=== PATIENT | female | born 1975 | race Caucasian/White ===

== ENCOUNTER 2017-02-01 19:50 | Emergency (ER) | payer OTHER ==
[2017-02-01] MEDS ORDERED: Ibuprofen TAB* 600 MG PO ONE (19:57)
[2017-02-01 19:58] VITALS: BP 140/85
--- NOTE | 2017-02-01 20:14 | UC ---
Throat Pain/Nasal Trey HPI - HPI Summary HPI Summary: 1) ST with mild runny nose and occ dry cough starting 4 days ago. Has been feeling feverish, has not taken temp. 2) 2 nights ago while shaving legs L foot slipped off side of tub and hit the ground, bruising L inner ankle 3) Last night was walking on steps in the dark and felt like she twisted her R ankle/foot. Having pain in R foot. - History of Current Complaint Chief Complaint: UCRespiratory Stated Complaint: THROAT PAIN Time Seen by Provider: 02/01/17 19:53 Hx Obtained From: Patient Hx Last Menstrual Period: 01/12/17 ?: No Onset/Duration: Gradual Onset, Lasting Days Severity: Mild Cough: Nonproductive Associated Signs & Symptoms: Positive: Nasal Discharge, Fever - subj. Negative : Wheezing, Vomiting, Rash - Allergies/Home Medications Allergies/Adverse Reactions: Allergies Allergy/AdvReac Type Severity Reaction Status Date / Time Aspirin Allergy Mild GI Upset Verified 08/25/13 20:27 Erythromycin Allergy Mild GI Upset Verified 08/25/13 20:27 Metronidazole [From Flagyl] Allergy Mild GI Upset Verified 08/25/13 20:27 Sulfamethoxazole Allergy Mild GI Upset Verified 08/25/13 20:27 w/Trimethoprim [From Bactrim] Latex Allergy Itching Verified 05/15/15 13:20 PMH/Surg Hx/FS Hx/Imm Hx Respiratory History: Asthma - Surgical History Surgical History: Yes Surgery Procedure, Year, and Place: CERVICAL TEAR REPAIR, TONSILLECTOMY, TUBAL LIGATION, APPENDECTOMY, SINUS SURGERY; left knee arthroscopy 07/2015 [facility] - Family History Known Family History: Negative: Cardiac Disease - Social History Lives: With Family Alcohol Use: Occasionally Substance Use Type: None Smoking Status (MU): Never Smoked Tobacco Household Exposure Type: Cigars Review of Systems Constitutional: Fever Skin: Negative Eyes: Negative ENT: Sore Throat Respiratory: Negative Cardiovascular: Negative Gastrointestinal: Negative Genitourinary: Negative Motor: Negative Neurovascular: Negative Musculoskeletal: Arthralgia Neurological: Negative Psychological: Negative All Other Systems Reviewed And Are Negative: Yes Physical Exam Triage Information Reviewed: Yes Appearance: Well-Appearing, Obese Vital Signs: Initial Vital Signs Temp 97.6 F 02/01/17 19:53 Pulse 106 02/01/17 19:53 Resp 20 02/01/17 19:53 BP 140/85 02/01/17 19:53 Pulse Ox 100 02/01/17 19:53 Vital Signs Reviewed: Yes Eye Exam: Normal, Other - PERRL Eyes: Positive: Conjunctiva Clear ENT: Positive: Hearing grossly normal, Pharynx normal, TMs normal. Negative: Nasal congestion, Tonsillar swelling - no tonsils, Tonsillar exudate Dental Exam: Normal Neck exam: Normal Neck: Positive: Supple, Nontender, No Lymphadenopathy Respiratory Exam: Normal Respiratory: Positive: Chest non-tender, Lungs clear, Normal breath sounds, No respiratory distress, No accessory muscle use Cardiovascular Exam: Normal Cardiovascular: Positive: RRR, No Murmur Musculoskeletal Exam: Other - Mild bruising and tenderness on L medial ankle Musculoskeletal: Positive: Strength Intact, ROM Intact, Other: - pt tenderness with bruising on R distal 5th MT Neurological Exam: Normal Psychological Exam: Normal Skin Exam: Other - bruising Throat Pain/Nasal Course/Dx - Differential Dx/Diagnosis Provider Diagnoses: pharyngitis. L ankle contusion. R foot sprain. elevated blood pressude due to discomfort Discharge - Discharge Plan Condition: Stable Disposition: HOME Patient Education Materials: Contusion in Adults (ED), Pharyngitis (ED), Foot Sprain (ED) Referrals: Nnamdi Sotelo MD [Primary Care Provider] -
--- NOTE | 2017-02-01 20:44 | RAD ---
INDICATION: Right foot injury. TECHNIQUE: 3 views of the right foot were obtained. FINDINGS: There is soft tissue swelling over the dorsal lateral aspect of the foot. The bones are normal alignment. No fracture is seen. Joint spaces appear maintained. IMPRESSION: SOFT TISSUE SWELLING, NO FRACTURE IS SEEN. IF THE PATIENT'S SYMPTOMS PERSIST RECOMMEND FOLLOW-UP IMAGING.
== END 2017-02-01 20:45 | disposition home or self-care (01) ==
LOC: UCEAST 19:50
DX: J02.9 Acute pharyngitis, unspecified (principal); S90.02XA Contusion of left ankle, initial encounter; S93.601A Unspecified sprain of right foot, initial encounter; X50.1XXA Overexertion from prolonged static or awkward postures, initial encounter; Y93.9 Activity, unspecified; Y92.9 Unspecified place or not applicable; R03.0 Elevated blood-pressure reading, without diagnosis of hypertension; R09.81 Nasal congestion; R50.9 Fever, unspecified; J45.909 Unspecified asthma, uncomplicated; E66.9 Obesity, unspecified; Z88.2 Allergy status to sulfonamides; Z88.6 Allergy status to analgesic agent; Z88.1 Allergy status to other antibiotic agents; Z91.040 Latex allergy status; Z77.22 Contact with and (suspected) exposure to environmental tobacco smoke (acute) (chronic)
CPT/HCPCS: 87651; 99212; A9270-GY; G0463

== ENCOUNTER 2017-04-06 19:26 | Emergency (ER) | payer OTHER ==
--- NOTE | 2017-04-06 19:36 | UC ---
Throat Pain/Nasal Trey HPI - HPI Summary HPI Summary: 41 year old female presents with complains of sinus congestion, sore throat and shortness of breath. - History of Current Complaint Stated Complaint: ST,STUFFY,SOB Time Seen by Provider: 04/06/17 19:36 Hx Obtained From: Patient Hx Last Menstrual Period: 01/12/17 Onset/Duration: Sudden Onset Severity: Moderate - Allergies/Home Medications Allergies/Adverse Reactions: Allergies Allergy/AdvReac Type Severity Reaction Status Date / Time Aspirin Allergy Mild GI Upset Verified 04/06/17 19:40 Erythromycin Allergy Mild GI Upset Verified 04/06/17 19:40 Metronidazole [From Flagyl] Allergy Mild GI Upset Verified 04/06/17 19:40 Sulfamethoxazole Allergy Mild GI Upset Verified 04/06/17 19:40 w/Trimethoprim [From Bactrim] Latex Allergy Itching Verified 04/06/17 19:40 Home Medications: Home Medications Nasal Rinses* 04/06/17 [History] PMH/Surg Hx/FS Hx/Imm Hx Previously Healthy: Yes - Surgical History Surgical History: Yes Surgery Procedure, Year, and Place: CERVICAL TEAR REPAIR, TONSILLECTOMY, TUBAL LIGATION, APPENDECTOMY, SINUS SURGERY; left knee arthroscopy 07/2015 [facility] - Family History Known Family History: Negative: Cardiac Disease - Social History Alcohol Use: Occasionally Substance Use Type: None Smoking Status (MU): Never Smoked Tobacco Household Exposure Type: Cigars Review of Systems Constitutional: Negative Skin: Negative Eyes: Negative ENT: Sore Throat, Nasal Discharge, Sinus Congestion, Sinus Pain/Tenderness Respiratory: Negative Cardiovascular: Negative Gastrointestinal: Negative Genitourinary: Negative Motor: Negative Neurovascular: Negative Musculoskeletal: Negative Neurological: Negative Psychological: Negative All Other Systems Reviewed And Are Negative: Yes Physical Exam Triage Information Reviewed: Yes Vital Signs Reviewed: Yes Eye Exam: Normal ENT: Positive: Pharyngeal erythema, Nasal congestion, Nasal drainage Dental Exam: Normal Neck exam: Normal Neck: Positive: 1 Respiratory Exam: Normal Cardiovascular Exam: Normal Abdominal Exam: Normal Musculoskeletal Exam: Normal Neurological Exam: Normal Psychological Exam: Normal Skin Exam: Normal Throat Pain/Nasal Course/Dx - Differential Dx/Diagnosis Provider Diagnoses: sinusitis. pharyngitis. post nasal drip Discharge - Discharge Plan Condition: Stable Disposition: HOME Prescriptions: Fluticasone NASAL * [Flonase *] 2 spray BOTH NARES DAILY #1 spray LoraTADine TAB(NF) [Claritin 10 MG TAB(NF)] 10 mg PO DAILY #30 tab Magic M W2 Jesus/Maal/Nyst/Lido* 5 ml SWISH SPIT QID PRN #120 ml PRN Reason: Pain Forms: *Work Release Referrals: Nnamdi Sotelo MD [Primary Care Provider] -
[2017-04-06 19:40] VITALS: BP 116/68
== END 2017-04-06 20:15 | disposition home or self-care (01) ==
LOC: UCEAST 19:26
DX: J32.9 Chronic sinusitis, unspecified (principal); J02.9 Acute pharyngitis, unspecified; R09.82 Postnasal drip; Z88.2 Allergy status to sulfonamides; Z88.6 Allergy status to analgesic agent; Z88.1 Allergy status to other antibiotic agents; Z91.040 Latex allergy status; Z77.22 Contact with and (suspected) exposure to environmental tobacco smoke (acute) (chronic)
CPT/HCPCS: 87651; 99212; G0463

== ENCOUNTER 2017-07-03 21:12 | Emergency (ER) | payer MEDICAID, OTHER ==
[2017-07-03 21:28] VITALS: BP 125/55
--- NOTE | 2017-07-03 21:37 | UC ---
Respiratory Complaint HPI - History of Current Complaint Chief Complaint: UCRespiratory Stated Complaint: SORE THROAT Time Seen by Provider: 07/03/17 21:17 Hx Obtained From: Patient Hx Last Menstrual Period: May Onset/Duration: Gradual Onset - started 4 days ago with nasal congestion, now has nausea, ST, fever and fatigue works with disabled and worried about flu Timing: Constant - Allergies/Home Medications Allergies/Adverse Reactions: Allergies Allergy/AdvReac Type Severity Reaction Status Date / Time Aspirin Allergy Mild GI Upset Verified 07/03/17 21:28 Erythromycin Allergy Mild GI Upset Verified 07/03/17 21:28 Metronidazole [From Flagyl] Allergy Mild GI Upset Verified 07/03/17 21:28 Sulfamethoxazole Allergy Mild GI Upset Verified 07/03/17 21:28 w/Trimethoprim [From Bactrim] Latex Allergy Itching Verified 07/03/17 21:28 PMH/Surg Hx/FS Hx/Imm Hx Previously Healthy: Yes Respiratory History: Asthma GI/ History: Gastroesophageal Reflux - Surgical History Surgical History: Yes Surgery Procedure, Year, and Place: CERVICAL TEAR REPAIR, TONSILLECTOMY, TUBAL LIGATION, APPENDECTOMY, SINUS SURGERY; left knee arthroscopy 07/2015 [facility] - Family History Known Family History: Negative: Cardiac Disease - Social History Occupation: Employed Full-time Lives: With Family Alcohol Use: Occasionally Substance Use Type: None Smoking Status (MU): Never Smoked Tobacco Household Exposure Type: Cigars Review of Systems Constitutional: Negative Skin: Negative ENT: Sore Throat, Ear Ache, Sinus Congestion Respiratory: Cough - in am and at bed (not through night) Cardiovascular: Negative Gastrointestinal: Nausea Musculoskeletal: Negative Neurological: Negative Psychological: Negative All Other Systems Reviewed And Are Negative: Yes Physical Exam Triage Information Reviewed: Yes Appearance: Well-Appearing, No Pain Distress, Well-Nourished Vital Signs: Initial Vital Signs Temp 98.2 F 07/03/17 21:25 Pulse 79 07/03/17 21:25 Resp 12 07/03/17 21:25 BP 125/55 07/03/17 21:25 Pulse Ox 98 07/03/17 21:25 Vital Signs Reviewed: Yes ENT: Positive: Pharynx normal, Nasal congestion, TMs normal Neck exam: Normal Neck: Positive: Supple, Nontender, No Lymphadenopathy Respiratory Exam: Normal Respiratory: Positive: Lungs clear Cardiovascular Exam: Normal Neurological Exam: Normal Psychological Exam: Normal Skin Exam: Normal UC Diagnostic Evaluation - Laboratory O2 Sat by Pulse Oximetry: 98 Respiratory Course/Dx - Differential Dx/Diagnosis Differential Diagnosis/HQI/PQRI: Bronchitis, Influenza, Sinusitis, Other - URI Provider Diagnoses: URI Discharge - Discharge Plan Condition: Stable Disposition: HOME Patient Education Materials: Upper Respiratory Infection (ED) Referrals: Nnamdi Sotelo MD [Primary Care Provider] - 2 Days (if no better) Additional Instructions: drink plenty of fluids and use over the counter ibuprofen as directed for fever and pain
== END 2017-07-03 22:06 | disposition home or self-care (01) ==
LOC: UCEAST 21:12
DX: J06.9 Acute upper respiratory infection, unspecified (principal); J45.909 Unspecified asthma, uncomplicated; K21.9 Gastro-esophageal reflux disease without esophagitis; Z88.2 Allergy status to sulfonamides; Z88.6 Allergy status to analgesic agent; Z88.1 Allergy status to other antibiotic agents; Z91.040 Latex allergy status; Z77.22 Contact with and (suspected) exposure to environmental tobacco smoke (acute) (chronic)
CPT/HCPCS: 87502; 99211; G0463

== ENCOUNTER 2017-08-05 18:49 | Emergency (ER) | payer OTHER ==
[2017-08-05 19:07] VITALS: BP 125/78
--- NOTE | 2017-08-05 19:45 | UC ---
Upper Extremity HPI - HPI Summary HPI Summary: atraumatic left elbow pain that radiates down arm.n/m/c intact - History of Current Complaint Chief Complaint: UCUpperExtremity Stated Complaint: LOWER ARM PAIN Time Seen by Provider: 08/05/17 19:33 Hx Obtained From: Patient Hx Last Menstrual Period: july 13, 2017 ?: No Onset/Duration: Gradual Onset, Lasting Weeks - 3, Still Present Severity Initially: Moderate Severity Currently: Moderate Pain Intensity: 8 Pain Scale Used: 0-10 Numeric Location Of Pain: Is Discrete @ - left elbow pain Character: Aching, Throbbing Aggravating Factor(s): Movement Alleviating Factor(s): Nothing Associated Signs And Symptoms: Positive: Negative Related History: Dominant Hand Right - Allergies/Home Medications Allergies/Adverse Reactions: Allergies Allergy/AdvReac Type Severity Reaction Status Date / Time aspirin Allergy Nausea Verified 08/05/17 19:10 erythromycin base Allergy Itching Verified 08/05/17 19:09 latex Allergy Rash Verified 08/05/17 19:10 metronidazole [From Flagyl] Allergy Rash And Verified 08/05/17 19:09 Itching sulfamethoxazole Allergy Itching Verified 08/05/17 19:09 [From Bactrim] trimethoprim [From Bactrim] Allergy Itching Verified 08/05/17 19:09 PMH/Surg Hx/FS Hx/Imm Hx Previously Healthy: No Respiratory History: Asthma GI/ History: Gastroesophageal Reflux - Surgical History Surgical History: Yes Surgery Procedure, Year, and Place: CERVICAL TEAR REPAIR, TONSILLECTOMY, TUBAL LIGATION, APPENDECTOMY, SINUS SURGERY; left knee arthroscopy 07/2015 [facility] - Family History Known Family History: Negative: Cardiac Disease - Social History Occupation: Employed Full-time Lives: With Family Alcohol Use: Occasionally Substance Use Type: None Smoking Status (MU): Never Smoked Tobacco Household Exposure Type: Cigars Review of Systems Constitutional: Negative Skin: Negative Eyes: Negative ENT: Negative Respiratory: Negative Cardiovascular: Negative Gastrointestinal: Negative Genitourinary: Negative Motor: Negative Neurovascular: Negative Musculoskeletal: Arthralgia - left elbow pain Neurological: Negative Psychological: Negative Is Patient Immunocompromised?: No All Other Systems Reviewed And Are Negative: Yes Physical Exam Triage Information Reviewed: Yes Appearance: Well-Appearing, Well-Nourished, Obese Vital Signs: Initial Vital Signs Temp 97.5 F 08/05/17 19:00 Pulse 70 08/05/17 19:00 Resp 16 08/05/17 19:00 BP 125/78 08/05/17 19:00 Pulse Ox 100 08/05/17 19:00 Vital Signs Reviewed: Yes Eye Exam: Normal Eyes: Positive: Conjunctiva Clear ENT Exam: Normal ENT: Positive: Normal ENT inspection, Hearing grossly normal. Negative: Trismus , Muffled voice, Hoarse voice, Dental tenderness, Sinus tenderness Neck exam: Normal Neck: Positive: Supple, Nontender Respiratory Exam: Normal Respiratory: Positive: No respiratory distress, No accessory muscle use Cardiovascular Exam: Normal Cardiovascular: Positive: RRR, Pulses Normal, Brisk Capillary Refill Musculoskeletal Exam: Other Musculoskeletal: Positive: No Edema, Strength Limited @, ROM Limited @, Other: - lateral epicond. pain with palpation Neurological Exam: Normal Neurological: Positive: Alert, Muscle Tone Normal, Fatigued Psychological Exam: Normal Psychological: Positive: Normal Response To Family, Age Appropriate Behavior Skin Exam: Normal Upper Extremity Course/Dx - Course Course Of Treatment: pressure band for tennis elbow, medrol dose pack rest ice follow with Dr. meeks - Differential Dx/Diagnosis Provider Diagnoses: left "tennis" elbow tendonitis Discharge - Discharge Plan Condition: Stable Disposition: HOME Prescriptions: methylPREDNISolone [Medrol] 4 mg PO .SEE LETTY INSTRUCTION #1 letty Patient Education Materials: Tennis Elbow (ED) Referrals: Joel Meeks MD [Medical Doctor] - If Needed
== END 2017-08-05 19:55 | disposition home or self-care (01) ==
LOC: UCEAST 18:49
DX: M77.12 Lateral epicondylitis, left elbow (principal); Z88.1 Allergy status to other antibiotic agents; Z91.040 Latex allergy status
CPT/HCPCS: 99212; G0463

== ENCOUNTER 2018-03-11 19:57 | Emergency (ER) | payer MEDICAID, OTHER ==
[2018-03-11 20:34] VITALS: BP 128/78
--- NOTE | 2018-03-11 21:10 | UC ---
Throat Pain/Nasal Trey HPI - HPI Summary HPI Summary: 42-year-old female with history of asthma presents with 2 day history of nasal congestion, yellow nasal drainage, sinus pain and pressure, and mild sore throat. She reports that she was a little short of breath this afternoon and did use her albuterol inhaler with good relief. Denies fever, chills, ear pain or pressure, chest pain, wheezing, abdominal pain, nausea or vomiting. - History of Current Complaint Chief Complaint: UCGeneralIllness Stated Complaint: COUGH AND SINUS CONGESTION Time Seen by Provider: 03/11/18 20:53 Hx Obtained From: Patient Hx Last Menstrual Period: 03/08/18 Onset/Duration: Gradual Onset, Lasting Days - 2 Severity: Moderate Pain Intensity: 8 Cough: None Associated Signs & Symptoms: Positive: Sinus Discomfort, Nasal Discharge. Negative: Dysphagia, Wheezing, Hoarseness, Fever, Vomiting, Rash - Allergies/Home Medications Allergies/Adverse Reactions: Allergies Allergy/AdvReac Type Severity Reaction Status Date / Time fluticasone Allergy Intermediate Shortness Verified 03/11/18 20:35 [From Advair Diskus] of Breath salmeterol Allergy Intermediate Shortness Verified 03/11/18 20:35 [From Advair Diskus] of Breath aspirin Allergy Nausea Verified 03/11/18 20:34 erythromycin base Allergy Itching Verified 03/11/18 20:34 latex Allergy Rash Verified 03/11/18 20:34 metronidazole [From Flagyl] Allergy Rash And Verified 03/11/18 20:34 Itching sulfamethoxazole Allergy Itching Verified 03/11/18 20:34 [From Bactrim] trimethoprim [From Bactrim] Allergy Itching Verified 03/11/18 20:34 PMH/Surg Hx/FS Hx/Imm Hx - Additional Past Medical History Additional PMH: Environmental allergies, lower extremity edema. Respiratory History: Asthma GI/ History: Gastroesophageal Reflux - Surgical History Surgical History: Yes Surgery Procedure, Year, and Place: CERVICAL TEAR REPAIR, TONSILLECTOMY, TUBAL LIGATION, APPENDECTOMY, SINUS SURGERY; left knee arthroscopy 07/2015 [facility] - Family History Family History: Noncontributory - Social History Occupation: Employed Full-time Lives: With Family Alcohol Use: Occasionally Substance Use Type: None Smoking Status (MU): Never Smoked Tobacco Household Exposure Type: Cigars Review of Systems Constitutional: Negative Skin: Negative Eyes: Negative ENT: Sore Throat, Nasal Discharge, Sinus Congestion, Sinus Pain/Tenderness Respiratory: Shortness Of Breath Cardiovascular: Negative Gastrointestinal: Negative Is Patient Immunocompromised?: No All Other Systems Reviewed And Are Negative: Yes Physical Exam Triage Information Reviewed: Yes Appearance: Well-Appearing, No Pain Distress, Obese Vital Signs: Initial Vital Signs Temp 98.1 F 03/11/18 20:28 Pulse 77 03/11/18 20:28 Resp 20 03/11/18 20:28 BP 128/78 03/11/18 20:28 Pulse Ox 97 03/11/18 20:28 Vital Signs Reviewed: Yes Eyes: Positive: Conjunctiva Clear. Negative: Discharge ENT: Positive: Pharyngeal erythema - Mild with postnasal drip, Nasal congestion , Nasal drainage, TMs normal, Sinus tenderness - Maxillary, Uvula midline. Negative: Tonsillar swelling, Tonsillar exudate, Trismus, Muffled voice, Hoarse voice Neck: Positive: Supple, Nontender, No Lymphadenopathy Respiratory: Positive: Lungs clear, Normal breath sounds, No respiratory distress Cardiovascular: Positive: RRR, No Murmur Neurological: Positive: Alert Skin Exam: Normal Throat Pain/Nasal Course/Dx - Course Course Of Treatment: 6-year-old female with 2 day history of nasal congestion and sinus pain and pressure and a mild sore throat. Afebrile. Exam consistent with an acute. maxillary sinusitis. Likely viral in origin. Recommend symptomatic treatment with saline rinses, steroid nasal spray, [id number] decongestant, and [id number] analgesics as needed. She is to follow-up with her primary care provider in 7 days if no improvement in symptoms. - Differential Dx/Diagnosis Differential Diagnosis/HQI/PQRI: Pharyngitis, Sinusitis, Tonsillitis, URI Provider Diagnoses: Acute maxillary sinusitis Discharge - Sign-Out/Discharge Documenting (check all that apply): Patient Departure All imaging exams completed and their final reports reviewed: No Studies - Discharge Plan Condition: Stable Disposition: HOME Patient Education Materials: Sinusitis (ED) Forms: *Work Release Referrals: Nnamdi Sotelo MD [Primary Care Provider] - 7 Days (If no improvement.) Additional Instructions: Your history and exam are consistent with an acute sinusitis. These tend to be caused by a viral infection and do not respond to antibiotics. Viral infections typically run their course over about 7-10 days. Start using your saline rinses again as this will help thin secretions and promote drainage. Continue using your fluticasone nasal spray as directed. I would recommend using an [id number] decongestant such as Sudafed to help with the pressure and congestion. Use your albuterol inhaler according to directions as needed for any wheezing or shortness of breath. Follow-up with your primary care provider in 7 days if symptoms persist. Seek immediate medical attention if you develop a fever greater than 100.5 F, become short of breath, have persistent wheezing despite use of your rescue inhaler, or any worsening of symptoms. - Billing Disposition and Condition Condition: STABLE Disposition: Home
== END 2018-03-11 21:19 | disposition home or self-care (01) ==
LOC: UCEAST 19:57
DX: J01.00 Acute maxillary sinusitis, unspecified (principal); Z88.2 Allergy status to sulfonamides; Z88.8 Allergy status to other drugs, medicaments and biological substances; Z88.6 Allergy status to analgesic agent; Z88.1 Allergy status to other antibiotic agents; Z91.040 Latex allergy status
CPT/HCPCS: 99211; G0463

== ENCOUNTER 2018-03-13 18:56 | Emergency (ER) | payer OTHER ==
[2018-03-13] MEDS ORDERED: predniSONE TAB* 20 MG PO ONE (20:09)
[2018-03-13] MEDS ORDERED: Acetaminophen TAB* 325 MG PO ONE (20:09)
[2018-03-13] MEDS ORDERED: Ibuprofen TAB* 600 MG PO ONE (20:12)
[2018-03-13 20:59] VITALS: BP 129/78
--- NOTE | 2018-03-13 21:29 | ED ---
Respiratory - HPI Summary HPI Summary: The pt is a 42 y.o female presenting to the [facility] accompanied by her with a chief complaint of SOB. She states that she may have a sinus congestion and reports her breathing worsening recently. She also states she hears wheezing and that her inhaler is not alleviating any of the symptoms. No surgical hx is mentioned when asked. Pt denies blurry vision, double vision, abd pain, back pain, hematuria, burning urination, anxiety, fevers, chills, and depression. She states she does have a hx of asthma. Pt reports ear ache at night (03/12/18), and slight chest pain that is now resolved. Allergies noted and reviewed. The patient rates the pain 0/10 in severity. Symptoms aggravated by nothing. Symptoms alleviated by nothing. The onset of the respiratory symptoms was stated to be Wednesday (03/09/18). - History of Current Complaint Chief Complaint: EDUpperRespComplaint Stated Complaint: DIFFICULTY BREATHING Hx Obtained From: Patient Onset/Duration: Gradual Onset, Lasting Days - since 03/09/18, Still Present Current Severity: None Pain Intensity: 0 Character: Wheezing Aggravating Factor(s): Nothing Alleviating Factor(s): Nothing Associated Signs and Symptoms: SOB, Chest Pain Unrelated to Cough - Allergy/Home Medications Allergies/Adverse Reactions: Allergies Allergy/AdvReac Type Severity Reaction Status Date / Time fluticasone Allergy Intermediate Shortness Verified 03/13/18 19:19 [From Advair Diskus] of Breath salmeterol Allergy Intermediate Shortness Verified 03/13/18 19:19 [From Advair Diskus] of Breath aspirin Allergy Nausea Verified 03/13/18 19:19 erythromycin base Allergy Itching Verified 03/13/18 19:19 latex Allergy Rash Verified 03/13/18 19:19 metronidazole [From Flagyl] Allergy Rash And Verified 03/13/18 19:19 Itching sulfamethoxazole Allergy Itching Verified 03/13/18 19:19 [From Bactrim] trimethoprim [From Bactrim] Allergy Itching Verified 03/13/18 19:19 PMH/Surg Hx/FS Hx/Imm Hx Endocrine/Hematology History: Denies: Hx Diabetes, Hx Thyroid Disease Cardiovascular History: Denies: Hx Hypertension, Hx Pacemaker/ICD Respiratory History: Reports: Hx Asthma, Hx Seasonal Allergies Denies: Hx Chronic Obstructive Pulmonary Disease (COPD) GI History: Reports: Hx Gastroesophageal Reflux Disease, Hx Irritable Bowel - resolved Denies: Hx Ulcer History: 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 Musculoskeletal History: Reports: Hx Back Problems - lower back, Hx Bursitis - left shoulder resolved, Hx Orthopedic Injury, Hx Tendonitis - bilateral shoulders resolved Sensory History: Denies: Hx Contacts or Glasses, Hx Hearing Aid Opthamlomology History: Denies: Hx Contacts or Glasses Neurological History: Reports: Hx Migraine, Hx Seizures - had as baby, none since Psychiatric History: Denies: Hx Panic Disorder - Surgical History Surgery Procedure, Year, and Place: CERVICAL TEAR REPAIR, TONSILLECTOMY, TUBAL LIGATION, APPENDECTOMY, SINUS SURGERY; left knee arthroscopy 07/2015 [place] Hx Anesthesia Reactions: No - Immunization History Date of Tetanus Vaccine: UTD Infectious Disease History: No Infectious Disease History: Reports: Hx of Known/Suspected MRSA - 03/13/2008 Denies: Hx Clostridium Difficile, Hx Hepatitis, Hx Human Immunodeficiency Virus (HIV), Hx Shingles, Hx Tuberculosis, Hx Known/Suspected VRE, Hx Known/ Suspected VRSA, History Other Infectious Disease, Traveled Outside the [place] in Last 30 Days - Family History Known Family History: Positive: Other - Cancer Negative: Cardiac Disease Family History: Noncontributory and reviewed - Social History Occupation: Employed Full-time Lives: With Family Alcohol Use: Rare Hx Substance Use: No Substance Use Type: Reports: None Hx Tobacco Use: No Smoking Status (MU): Never Smoked Tobacco Review of Systems Negative: Fever, Chills Eyes: Other - Negative double vision Negative: Blurred Vision Negative: Sore Throat, Ear Ache Positive: Chest Pain Negative: Shortness Of Breath Negative: Vomiting, Nausea Positive: no symptoms reported. Negative: burning, hematuria Musculoskeletal: Other - Negative back pain and negative neck pain Negative: Rash Negative: Headache Negative: Anxious, Depressed All Other Systems Reviewed And Are Negative: No Physical Exam - Summary Physical Exam Summary: Appearance: Alert, conversive, nontoxic appearing Skin: Warm, dry, no mottling, no rashes, no contusions HEENT: EOMI, PERRL, moist mucous membranes Neck: No masses on the neck, supple Respiratory: Clear to auscultation, breath sounds present, no rales, no rhonchi , no wheezes Cardiovascular: RRR, pulses are symmetrical in both lower and upper extremities Abdomen: Soft, non-tender Bowel Sounds: Present Musculoskeletal: No CVA tenderness, no obvious deformity, moving all extremities in a grossly normal manner Neurological: A&Ox3, CN II-XII Intact, moving all extremities symmetrically Psychiatric: Normal affect and mood Triage Information Reviewed: Yes Vital Signs On Initial Exam: Initial Vitals Temp Pulse Resp BP Pulse Ox 97.8 F 56 15 136/76 98 03/13/18 19:07 03/13/18 19:07 03/13/18 19:07 03/13/18 19:07 03/13/18 19:07 Vital Signs Reviewed: Yes Diagnostics - Vital Signs Vital Signs Temp Pulse Resp BP Pulse Ox 03/13/18 20:59 98.4 F 79 18 129/78 98 03/13/18 19:07 97.8 F 56 15 136/76 98 - Laboratory Lab Statement: Any lab studies that have been ordered have been reviewed, and results considered in the medical decision making process. Disposition - Course Course Of Treatment: The pt is a 42 y.o female with a chief complaint of SOB. Pt describes respiratory difficulty and also states hx of asthma. We discussed allergies and verified that she is not allergic to the prescribed steroids and motrin. We recommended taking these medication as an outpatient and following up with her Primary care provider. The pt will be discharged home with a dx of reactive airway disease and upper respiratory infection. - Diagnoses Provider Diagnoses: Reactive airway disease, Upper respiratory infection Discharge - Sign-Out/Discharge Documenting (check all that apply): Patient Departure - Discharge home - Discharge Plan Condition: Stable Disposition: HOME Prescriptions: DOXYcycline CAP(*) [DOXYcycline 100MG CAP(*)] 100 mg PO BID #14 cap predniSONE TAB* [Deltasone 20 MG TAB*] 60 mg PO DAILY #12 tab Spacer/Holding Chamber (NF) [Easivent CHAMBER (NF)] 1 mdi INH Q4HR #1 device MDD 6 Patient Education Materials: Upper Respiratory Infection (ED) Referrals: Nnamdi Sotelo MD [Primary Care Provider] - Additional Instructions: return if worse or any new symptoms. Take all medications as previously instructed. IT is important to follow up with your primary care physician. - Attestation Statements Document Initiated by Scribe: Yes Documenting Scribe: Richard Mccray Provider For Whom Scribe is Documenting (Include Credential): Dr. Ana Pacheco Scribe Attestation: Richard Mckeon, scribed for Dr. Ana Pacheco on 03/13/18 at 2136.
== END 2018-03-13 20:58 | disposition home or self-care (01) ==
LOC: ED 18:56
DX: J45.909 Unspecified asthma, uncomplicated (principal); J06.9 Acute upper respiratory infection, unspecified; Z88.3 Allergy status to other anti-infective agents; Z88.6 Allergy status to analgesic agent
CPT/HCPCS: 99282; A9270-GY; J7512

== ENCOUNTER 2018-04-12 10:46 | Emergency (ER) | payer OTHER ==
[2018-04-12 10:57] VITALS: BP 121/76
--- NOTE | 2018-04-12 11:14 | UC ---
Respiratory Complaint HPI - HPI Summary HPI Summary: Here with - Two days ago woke with a frontal headache. Took naproxen and migraine medicine. Later in the day still needed to take alleve. Yesterday she came home early because she was not feeling well with headache. This morning she woke up wit tay sore throat and congestion and had to call in sick. Works as a wrecking car driver care employee. States she intermittently gets SOB - has not needed to use her Albuterol inhaler. No CP. No N/V/D. NO fevers. PMHx: Reviewed Meds: Reviewed - History of Current Complaint Chief Complaint: UCGeneralIllness Stated Complaint: SINUS COMPLAINT Time Seen by Provider: 04/12/18 11:03 Hx Last Menstrual Period: 04/04/18 Pain Intensity: 8 - Allergies/Home Medications Allergies/Adverse Reactions: Allergies Allergy/AdvReac Type Severity Reaction Status Date / Time fluticasone Allergy Intermediate Shortness Verified 03/13/18 19:19 [From Advair Diskus] of Breath salmeterol Allergy Intermediate Shortness Verified 03/13/18 19:19 [From Advair Diskus] of Breath aspirin Allergy Nausea Verified 03/13/18 19:19 erythromycin base Allergy Itching Verified 03/13/18 19:19 latex Allergy Rash Verified 03/13/18 19:19 metronidazole [From Flagyl] Allergy Rash And Verified 03/13/18 19:19 Itching sulfamethoxazole Allergy Itching Verified 03/13/18 19:19 [From Bactrim] trimethoprim [From Bactrim] Allergy Itching Verified 03/13/18 19:19 PMH/Surg Hx/FS Hx/Imm Hx - Surgical History Surgical History: Yes Surgery Procedure, Year, and Place: CERVICAL TEAR REPAIR, TONSILLECTOMY, TUBAL LIGATION, APPENDECTOMY, SINUS SURGERY; left knee arthroscopy 07/2015 [place] - Family History Known Family History: Positive: Other - Cancer Negative: Cardiac Disease Family History: Noncontributory and reviewed - Social History Alcohol Use: Rare Substance Use Type: None Smoking Status (MU): Never Smoked Tobacco Household Exposure Type: Cigars Review of Systems All Other Systems Reviewed And Are Negative: Yes Physical Exam Triage Information Reviewed: Yes Appearance: Well-Appearing, No Pain Distress Vital Signs: Initial Vital Signs Temp 98 F 04/12/18 10:55 Pulse 74 04/12/18 10:55 Resp 16 04/12/18 10:55 BP 121/76 04/12/18 10:55 Pulse Ox 99 04/12/18 10:55 Eye Exam: Normal Eyes: Positive: Conjunctiva Clear ENT: Positive: Pharyngeal erythema, Nasal congestion, TMs normal Dental Exam: Normal Neck exam: Normal Neck: Positive: Supple Respiratory: Positive: Lungs clear, Normal breath sounds, No respiratory distress Cardiovascular: Positive: RRR, No Murmur Skin Exam: Normal UC Diagnostic Evaluation - Laboratory O2 Sat by Pulse Oximetry: 99 Respiratory Course/Dx - Course Course Of Treatment: This is a 42 yr old with PMHx of asthma and allergies who presents with 2 days of sinus headache and congestion. assessment. Nontoxic appearing. Dx: URI. Plan. Recommend starting a antihistamine such as zyrtec that can be purchased over the counter. Continue your home medication regimen. If symptoms persist or worsen, call your primary care physician for further evaluation - Differential Dx/Diagnosis Provider Diagnoses: Upper respiratory tract infection Discharge - Sign-Out/Discharge Documenting (check all that apply): Patient Departure All imaging exams completed and their final reports reviewed: No Studies - Discharge Plan Condition: Good Disposition: HOME Patient Education Materials: Upper Respiratory Infection (ED) Referrals: Nnamdi Sotelo MD [Primary Care Provider] - Additional Instructions: Recommend starting a antihistamine such as zyrtec that can be purchased over the counter Continue your home medication regimen If symptoms persist or worsen, call your primary care physician for further evaluation - Billing Disposition and Condition Condition: GOOD Disposition: Home
== END 2018-04-12 11:30 | disposition home or self-care (01) ==
LOC: UCEAST 10:46
DX: J06.9 Acute upper respiratory infection, unspecified (principal); Z88.8 Allergy status to other drugs, medicaments and biological substances; Z88.2 Allergy status to sulfonamides; Z88.1 Allergy status to other antibiotic agents; Z88.6 Allergy status to analgesic agent; Z91.040 Latex allergy status
CPT/HCPCS: 99211; G0463

== ENCOUNTER → 2018-04-23 19:31 | Emergency (ER) | payer OTHER ==
[~2018-04-23 19:31] MED LIST: DOXYcycline CAP(*) 100 MG PO ONE
--- NOTE | 2018-04-23 21:08 | ED ---
Respiratory - HPI Summary HPI Summary: This patient is a 42 year old F presenting to [facility] accompanied by her with a chief complaint of cough since 04/20/18. She endorses yellow mucous with blood in it coming from her nose, and resolved ear ache. She denies fever and chills. - History of Current Complaint Chief Complaint: EDUpperRespComplaint Stated Complaint: COUGH/CONGESTION Time Seen by Provider: 04/23/18 20:58 Hx Obtained From: Patient Onset/Duration: Gradual Onset, Lasting Days, Still Present Timing: Constant Initial Severity: Moderate Current Severity: Moderate Pain Intensity: 7 Character: Cough (Nonproductive) Sputum Amount: None Aggravating Factor(s): Nothing Alleviating Factor(s): Nothing Associated Signs and Symptoms: Nasal Congestion - yellow mucous with blood upon blowing nose - Allergy/Home Medications Allergies/Adverse Reactions: Allergies Allergy/AdvReac Type Severity Reaction Status Date / Time fluticasone Allergy Intermediate Shortness Verified 04/23/18 20:52 [From Advair Diskus] of Breath salmeterol Allergy Intermediate Shortness Verified 04/23/18 20:52 [From Advair Diskus] of Breath aspirin Allergy Nausea Verified 04/23/18 20:52 erythromycin base Allergy Itching Verified 04/23/18 20:52 latex Allergy Rash Verified 04/23/18 20:52 metronidazole [From Flagyl] Allergy Rash And Verified 04/23/18 20:52 Itching sulfamethoxazole Allergy Itching Verified 04/23/18 20:52 [From Bactrim] trimethoprim [From Bactrim] Allergy Itching Verified 04/23/18 20:52 PMH/Surg Hx/FS Hx/Imm Hx Endocrine/Hematology History: Denies: Hx Diabetes, Hx Sickle Cell Disease, Hx Thyroid Disease Cardiovascular History: Denies: Hx Hypertension, Hx Pacemaker/ICD Respiratory History: Reports: Hx Asthma, Hx Seasonal Allergies Denies: Hx Chronic Obstructive Pulmonary Disease (COPD) GI History: Reports: Hx Gastroesophageal Reflux Disease, Hx Irritable Bowel - resolved Denies: Hx Ulcer History: 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 Musculoskeletal History: Reports: Hx Back Problems - lower back, Hx Bursitis - left shoulder resolved, Hx Orthopedic Injury, Hx Tendonitis - bilateral shoulders resolved Sensory History: Denies: Hx Contacts or Glasses, Hx Hearing Aid Opthamlomology History: Denies: Hx Contacts or Glasses Neurological History: Reports: Hx Migraine, Hx Seizures - had as baby, none since Psychiatric History: Denies: Hx Panic Disorder - Surgical History Surgery Procedure, Year, and Place: CERVICAL TEAR REPAIR, TONSILLECTOMY, TUBAL LIGATION, APPENDECTOMY, SINUS SURGERY; left knee arthroscopy 07/2015 [place] Hx Anesthesia Reactions: No - Immunization History Date of Tetanus Vaccine: UTD Immunizations Up to Date: Yes Infectious Disease History: No Infectious Disease History: Reports: Hx of Known/Suspected MRSA - 03/13/2008 Denies: Hx Clostridium Difficile, Hx Hepatitis, Hx Human Immunodeficiency Virus (HIV), Hx Shingles, Hx Tuberculosis, Hx Known/Suspected VRE, Hx Known/ Suspected VRSA, History Other Infectious Disease, Traveled Outside the [place] in Last 30 Days - Family History Known Family History: Positive: Other - Cancer Negative: Cardiac Disease Family History: Noncontributory and reviewed - Social History Lives: With Family Alcohol Use: Occasionally Hx Substance Use: No Substance Use Type: Reports: None Hx Tobacco Use: No Smoking Status (MU): Never Smoked Tobacco Review of Systems Negative: Fever, Chills Positive: Ear Ache - resolved, Nasal Discharge - yellow with blood Positive: Cough Positive: no symptoms reported All Other Systems Reviewed And Are Negative: Yes Physical Exam - Summary Physical Exam Summary: Appearance: The patient is well-nourished in no acute distress and in no acute pain. Skin: The skin is warm and dry and skin color reflects adequate perfusion. HEENT: The head is normocephalic and atraumatic. The pupils are equal and reactive. The conjunctivae are clear and without drainage. Nares are patent and without drainage. Mouth reveals moist mucous membranes and the throat is without erythema and exudate. The external ears are intact. The ear canals are patent and without drainage. The tympanic membranes are intact. Neck: The neck is supple with full range of motion and non-tender. There are no carotid bruits. There is no neck vein distension. Respiratory: Chest is non-tender. Lungs are clear to auscultation and breath sounds are symmetrical and equal. Cardiovascular: Heart is regular rate and rhythm. There is no murmur or rub auscultated. There is no peripheral edema and pulses are symmetrical and equal. Abdomen: The abdomen is soft and non-tender. There are normal bowel sounds heard in all four quadrants and there is no organomegaly palpated. Musculoskeletal: There is no back tenderness noted. Extremities are non-tender with full range of motion. There is good capillary refill. There is no peripheral edema or calf tenderness elicited. Neurological: Patient is alert and oriented to person, place and time. The patient has symmetrical motor strength in all four extremities. Cranial nerves are grossly intact. Deep tendon reflexes are symmetrical and equal in all four extremities. Psychiatric: The patient has an appropriate affect and does not exhibit any anxiety or depression. Triage Information Reviewed: Yes Vital Signs On Initial Exam: Initial Vitals Temp Pulse Resp BP Pulse Ox 97.9 F 70 16 149/83 97 04/23/18 19:40 04/23/18 19:40 04/23/18 19:40 04/23/18 19:40 04/23/18 19:40 Vital Signs Reviewed: Yes Diagnostics - Vital Signs Vital Signs Temp Pulse Resp BP Pulse Ox 04/23/18 19:40 97.9 F 70 16 149/83 97 - Laboratory Lab Statement: Any lab studies that have been ordered have been reviewed, and results considered in the medical decision making process. - Radiology CXR Radiology Interpretation Completed By: ED Physician Summary of Radiographic Findings: Broncho-pneumonia. Pending official imaging report. Disposition - Course Course Of Treatment: Ms. Mitchell is developed a productive cough late in the course of a URI. Her x-ray shows some prominent bronchi and perihilar pantoja. This probably all part of a viral process however she is a smoker and it may be a secondary bacterial infection. - Diagnoses Provider Diagnoses: Bronchitis Discharge - Sign-Out/Discharge Documenting (check all that apply): Patient Departure - discharge - Discharge Plan Condition: Stable Disposition: HOME Prescriptions: DOXYcycline CAP(*) [DOXYcycline 100MG CAP(*)] 100 mg PO BID #20 cap Patient Education Materials: Acute Bronchitis (ED) Forms: *Work Release Referrals: Nnamdi Sotelo MD [Primary Care Provider] - Additional Instructions: Follow up with your primary care physician in 2-3 days. Return to the emergency department for any new or worsening symptoms. - Billing Disposition and Condition Condition: STABLE Disposition: Home - Attestation Statements Document Initiated by Scribe: Yes Documenting Scribe: Jairon Eng Provider For Whom Scribe is Documenting (Include Credential): Dr. Amandeep Knight MD Scribe Attestation: I, Jairon Eng, scribed for Dr. Amandeep Knight MD on 04/24/18 at 1318. Scribe Documentation Reviewed: Yes Provider Attestation: The documentation as recorded by the scribe, Jairon Eng accurately reflects the service I personally performed and the decisions made by me, Dr. Amandeep Knight MD
[2018-04-23 21:43] VITALS: BP 144/80
== END | disposition home or self-care (01) ==
LOC: ED 19:31
DX: J40 Bronchitis, not specified as acute or chronic (principal); Z88.2 Allergy status to sulfonamides; Z88.8 Allergy status to other drugs, medicaments and biological substances; Z88.6 Allergy status to analgesic agent; Z88.1 Allergy status to other antibiotic agents; Z91.040 Latex allergy status
CPT/HCPCS: 71046; 99282; A9270-GY

== ENCOUNTER 2018-06-20 17:51 | Emergency (ER) | payer OTHER ==
--- OUTSIDE RECORDS SUMMARY | 2018-06-20 17:56 | XMS REPORT | Continuity of Care Document ---
:1975 External Reference #:[id number] Author Name RussellGregey Care Team Providers Name Role Phone Nnamdi Sotelo MD Primary Care Physician Unavailable Payers Type Date Identification Numbers Payment Provider Subscriber Policy Number: [id number] Socrates Mitchell Group Name: [id number] [address] PayID: [id number] [place] [address] Advance Directives Description No Information Available Problems Date Description Provider Status Onset: 04/23/2015 Sprain of unspecified site of right Leonid Carvalho M.D. Active knee, subsequent encounter Onset: 05/21/2015 Sprain of unspecified site of left knee, eLonid Carvalho M.D. 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 Tobacco Use Start: Unknown Never Smoked Cigarettes Smoking Status Reviewed: 06/03/18 Never Smoked Cigarettes ETOH Use Occasionally consumes alcohol Tobacco Use Start: Unknown Patient has never smoked Recreational Drug Use Denies Drug Use Exercise Type/Frequency Exercises sporadically Allergies, Adverse Reactions, Alerts Date Description Reaction Status Severity Comments 04/23/2015 Erythromycin Nausea Active 04/23/2015 Bactrim Nausea Active 04/23/2015 Flagyl Flushing, Itching Active 04/23/2015 Latex Tape Active 04/23/2015 Aspirin Nausea Active Medications Medication Date Status Form Strength Qnty SIG Indications Ordering Provider Singulair Active Tablets 10mg 1 by mouth Unknown / every day Pulmicort Active Unknown / Flonase Allergy Active Suspension 50mcg/Act 2 Unknown Relief intranasal twice a day Saline Nasal Active Unknown Rinse Ibuprofen Active Tablets 600mg 1 by mouth Unknown three times a day as needed Hydrochlorothiazi Active Unknown Ra Loratadine Active Tablets 10mg James, Molly, [employer] BAB[employer] Ventolin HFA Active Aerosol 108(90Bas Inhale 2 Unknown e) Puffs By mcg/Act Mouth Every 4 Hours as Needed For Shortness Of Breath Aerochamber Plus Active Misc use as Unknown Anthony- directed Hydrocodone-Aceta Hx Tablets 5-325mg 1 by mouth Unknown min every 4-6 - hours prn. 03/04 Omeprazole Hx Unknown /0000 - 03/04 Qvar Hx Unknown /0000 - 03/04 Nasal Ointment Hx Unknown /0000 - 03/04 Immunizations Description No Information Available Vital Signs Date Vital Result Comment 06/03/2018 1:43pm Height 66.25 inches 5'6.25" Weight 286.00 lb Heart Rate 74 /min BP Systolic Sitting 114 mmHg BP Diastolic Sitting 70 mmHg Respiratory Rate 18 /min O2 % BldC Oximetry 96 % on Ra BMI (Body Mass Index) 45.8 kg/m2 04/23/2015 1:13pm Height 66.25 inches 5'6.25" Weight 258.00 lb Heart Rate 63 /min BP Systolic 107 mmHg BP Diastolic 70 mmHg BMI (Body Mass Index) 41.3 kg/m2 Results Description No Information Available Procedures Description No Information Available Encounters Type Date Location Provider Dx Diagnosis Office Visit 05/21/2015 Orthopedic Leonid Carvalho, S83.92xD Sprain of 3:40p [facility] unspecified site of left knee, subs encntr S83.512D Sprain of anterior cruciate ligament of left knee, subs Office Visit 05/14/2015 Orthopedic Leonid Carvalho, S83.92xD Sprain of 2:20p [facility] unspecified site [facility] of left knee, subs encntr Office Visit 04/23/2015 Orthopedic Leonid Torresmichael, S83.92xD Sprain of 1:00p [facility] unspecified site [facility] of left knee, subs encntr Office Visit 02/15/2013 [facility]opedic [facility] 727.04 Tenosynovitis 11:00a [facility] Radial Styloid Bryanna Alvarado Office Visit 01/17/2013 [facility] 719.43 Pain Joint Forearm 10:00a [facility] Hand M.D. Office Visit 12/26/2010 Orthopedic Rita Ledesma 845.00 Sprains & Strains 9:45a [facility] Ankle Unspec Site [facility] Office Visit 12/02/2010 Orthopedic Rita Ledesma 845.00 Sprains & Strains 3:00p [facility] Ankle Unspec Site [facility] Plan of Treatment 06/03/2018 - Cornelia Chin MDJ45.909 Unspecified asthma, uncomplicatedNew Labs :Alpha 1 Antitrypsin A1a, Ordered: 06/03/18New Orders:PFTW/Spirometry Vol Pre/ Post Bronchdilat Dlco Complete, Ordered: 06/03/18R06.83 SnoringNew Orders:Home Sleep Testing, Ordered: 06/03/18K21.0 Gastro-esophageal reflux disease with [id number] Allergic rhinitis, unspecifiedReferral:Atul Obrien MD, Allergy & OiaelsnrsdH09.09 Other obesity due to excess calories
[2018-06-20 18:08] VITALS: BP 136/75
--- NOTE | 2018-06-20 18:33 | UC ---
Throat Pain/Nasal Trey HPI - HPI Summary HPI Summary: 42-year-old woman comes in with upper respiratory tract infection symptoms for 2 weeks. The runny nose sore throat cough chest congestion. Now it's primarily in her sinuses. Rhinorrhea is yellow. She has asthma and she's been using her inhalers. Helps briefly with her shortness of breath. She's been on a steroid she feels like has not helped. - History of Current Complaint Chief Complaint: UCGeneralIllness Stated Complaint: SORE THROAT Time Seen by Provider: 06/20/18 18:02 Hx Last Menstrual Period: 06/18/18 Pain Intensity: 6 - Allergies/Home Medications Allergies/Adverse Reactions: Allergies Allergy/AdvReac Type Severity Reaction Status Date / Time fluticasone Allergy Intermediate Shortness Verified 06/20/18 18:08 [From Advair Diskus] of Breath salmeterol Allergy Intermediate Shortness Verified 06/20/18 18:08 [From Advair Diskus] of Breath aspirin Allergy Nausea Verified 06/20/18 18:08 erythromycin base Allergy Itching Verified 06/20/18 18:08 latex Allergy Rash Verified 06/20/18 18:08 metronidazole [From Flagyl] Allergy Rash And Verified 06/20/18 18:08 Itching sulfamethoxazole Allergy Itching Verified 06/20/18 18:08 [From Bactrim] trimethoprim [From Bactrim] Allergy Itching Verified 06/20/18 18:08 PMH/Surg Hx/FS Hx/Imm Hx Previously Healthy: Yes Respiratory History: Asthma GI/ History: Gastroesophageal Reflux - Surgical History Surgical History: Yes Surgery Procedure, Year, and Place: CERVICAL TEAR REPAIR, TONSILLECTOMY, TUBAL LIGATION, APPENDECTOMY, SINUS SURGERY; left knee arthroscopy 07/2015 [place] - Family History Known Family History: Positive: Respiratory Disease, Other - Cancer Negative: Cardiac Disease Family History: Noncontributory and reviewed - Social History Alcohol Use: Occasionally Substance Use Type: None Smoking Status (MU): Never Smoked Tobacco Household Exposure Type: Cigars Review of Systems All Other Systems Reviewed And Are Negative: Yes Constitutional: Positive: Negative Skin: Positive: Negative Eyes: Positive: Negative ENT: Positive: Sore Throat, Nasal Discharge, Sinus Congestion, Sinus Pain/ Tenderness Respiratory: Positive: Shortness Of Breath, Cough Cardiovascular: Positive: Negative Gastrointestinal: Positive: Negative Motor: Positive: Negative Neurovascular: Positive: Negative Musculoskeletal: Positive: Negative Neurological: Positive: Negative Psychological: Positive: Negative Is Patient Immunocompromised?: No Physical Exam Triage Information Reviewed: Yes Appearance: No Pain Distress, Well-Nourished, Ill-Appearing - MILD Vital Signs: Initial Vital Signs Temp 97.4 F 06/20/18 18:03 Pulse 59 06/20/18 18:03 Resp 18 06/20/18 18:03 BP 136/75 06/20/18 18:03 Pulse Ox 100 06/20/18 18:03 Vital Signs Reviewed: Yes Eye Exam: Normal Eyes: Positive: Conjunctiva Clear ENT: Positive: Pharyngeal erythema, Nasal congestion, Nasal drainage, TMs normal Neck exam: Normal Neck: Positive: Supple Respiratory: Positive: Lungs clear, Normal breath sounds, No respiratory distress, No accessory muscle use Cardiovascular: Positive: RRR Musculoskeletal Exam: Normal Musculoskeletal: Positive: Strength Intact, ROM Intact Neurological Exam: Normal Neurological: Positive: Alert, Muscle Tone Normal Psychological Exam: Normal Psychological: Positive: Normal Response To Family, Age Appropriate Behavior Skin Exam: Normal Throat Pain/Nasal Course/Dx - Differential Dx/Diagnosis Provider Diagnosis: Sinusitis Discharge - Sign-Out/Discharge Documenting (check all that apply): Patient Departure All imaging exams completed and their final reports reviewed: No Studies - Discharge Plan Condition: Stable Disposition: HOME Prescriptions: Amoxicillin/Clavulanate TAB* [Augmentin TAB 875*] 875 mg PO BID #20 tab Patient Education Materials: Sinusitis (ED) Forms: *School Release Referrals: Nnamdi Sotelo MD [Primary Care Provider] - Additional Instructions: FOLLOW UP WITH YOUR DOCTOR IF NOT COMPLETELY IMPROVED. GET RECHECKED FOR ANY WORSENING OF YOUR CONDITION OR QUESTIONS OR CONCERNS. - Billing Disposition and Condition Condition: STABLE Disposition: Home
== END 2018-06-20 18:43 | disposition home or self-care (01) ==
LOC: UCEAST 17:51
DX: J32.9 Chronic sinusitis, unspecified (principal); J02.9 Acute pharyngitis, unspecified; J45.909 Unspecified asthma, uncomplicated; Z88.1 Allergy status to other antibiotic agents; Z88.8 Allergy status to other drugs, medicaments and biological substances; Z88.6 Allergy status to analgesic agent; Z88.2 Allergy status to sulfonamides; Z91.040 Latex allergy status
CPT/HCPCS: 99212; G0463

== ENCOUNTER 2018-11-23 20:25 | Emergency (ER) | payer OTHER ==
[2018-11-23 20:53] VITALS: BP 122/76
--- NOTE | 2018-11-23 20:59 | UC ---
Throat Pain/Nasal Trey HPI - HPI Summary HPI Summary: Woke up this morning with sore throat and pain with swallowing. Mild congestion , minimal cough and left ear fullness. No fever, nausea/vomiting. Is requesting note for work today. e. - History of Current Complaint Chief Complaint: UCGeneralIllness Stated Complaint: GENERAL ILLNESS Time Seen by Provider: 11/23/18 20:41 Hx Obtained From: Patient Hx Last Menstrual Period: 3 weeks Onset/Duration: Gradual Onset, Lasting Hours, Still Present Severity: Mild Pain Intensity: 2 Pain Scale Used: 0-10 Numeric Cough: Nonproductive Associated Signs & Symptoms: Positive: Nasal Discharge - Allergies/Home Medications Allergies/Adverse Reactions: Allergies Allergy/AdvReac Type Severity Reaction Status Date / Time fluticasone Allergy Intermediate Shortness Verified 11/23/18 20:54 [From Advair Diskus] of Breath salmeterol Allergy Intermediate Shortness Verified 11/23/18 20:54 [From Advair Diskus] of Breath aspirin Allergy Nausea Verified 11/23/18 20:54 erythromycin base Allergy Itching Verified 11/23/18 20:54 latex Allergy Rash Verified 11/23/18 20:54 metronidazole [From Flagyl] Allergy Rash And Verified 11/23/18 20:54 Itching sulfamethoxazole Allergy Itching Verified 11/23/18 20:54 [From Bactrim] trimethoprim [From Bactrim] Allergy Itching Verified 11/23/18 20:54 PMH/Surg Hx/FS Hx/Imm Hx Respiratory History: Asthma - Surgical History Surgical History: Yes Surgery Procedure, Year, and Place: CERVICAL TEAR REPAIR, TONSILLECTOMY, TUBAL LIGATION, APPENDECTOMY, SINUS SURGERY; left knee arthroscopy 07/2015 [facility] - Family History Known Family History: Positive: Respiratory Disease, Other - Cancer Negative: Cardiac Disease Family History: Noncontributory and reviewed - Social History Alcohol Use: Occasionally Substance Use Type: None Smoking Status (MU): Never Smoked Tobacco Household Exposure Type: Cigars Review of Systems All Other Systems Reviewed And Are Negative: Yes Constitutional: Positive: Negative ENT: Positive: Sore Throat, Nasal Discharge Respiratory: Positive: Cough Cardiovascular: Positive: Negative Gastrointestinal: Positive: Negative Physical Exam Triage Information Reviewed: Yes Appearance: Well-Appearing, No Pain Distress, Well-Nourished Vital Signs: Initial Vital Signs Temp 99 F 11/23/18 20:39 Pulse 81 11/23/18 20:39 Resp 16 11/23/18 20:39 BP 140/80 11/23/18 20:39 Pulse Ox 97 11/23/18 20:39 Vital Signs Reviewed: Yes Eyes: Positive: Conjunctiva Clear ENT: Positive: Hearing grossly normal, Pharynx normal, TMs normal Neck: Positive: Supple, Nontender, No Lymphadenopathy Respiratory Exam: Normal Cardiovascular Exam: Normal Abdomen Description: Positive: Soft Musculoskeletal: Positive: No Edema Neurological: Positive: Alert Psychological: Positive: Age Appropriate Behavior Skin: Negative: Rashes Throat Pain/Nasal Course/Dx - Course Course Of Treatment: PT'S SYMPTOMS LIKELY VIRALLY MEDIATED AND JUST STARTED TODAY. EXAM NORMAL. NO OP ERYTHEMA, NO OTITIS, LUNGS CLEAR, NO RASHES. NO COUGH DURING ENCOUNTER. NO NASAL CONGESTION. NO ACUTE INTERVENTION INDICATED TODAY. PT CALLED IN TO WORK TODAY AND IS REQUESTING A NOTE. - Differential Dx/Diagnosis Provider Diagnosis: Acute URI, Pharyngitis Discharge - Sign-Out/Discharge Documenting (check all that apply): Patient Departure All imaging exams completed and their final reports reviewed: No Studies - Discharge Plan Condition: Stable Disposition: HOME Patient Education Materials: Pharyngitis (ED) Forms: *Gen. Provider Communication Referrals: Nnamdi Sotelo MD [Primary Care Provider] - If Needed Additional Instructions: YOUR SYMPTOMS ARE LIKELY VIRALLY MEDIATED AND SHOULD RESOLVE ON THEIR OWN WITH TIME. NO INDICATION FOR ANTIBIOTICS AT PRESENT. REST, HYDRATE, OTC MEDS NEEDED. SEEK FOLLOW-UP IF YOU ARE NOT IMPROVING OVER THE NEXT 1-2 WEEKS. - Billing Disposition and Condition Condition: STABLE Disposition: Home
== END 2018-11-23 21:30 | disposition home or self-care (01) ==
LOC: UCEAST 20:25
DX: J06.9 Acute upper respiratory infection, unspecified (principal); J02.9 Acute pharyngitis, unspecified
CPT/HCPCS: 99211; G0463

== ENCOUNTER 2019-01-01 17:51 | Emergency (ER) | payer OTHER ==
[2019-01-01 18:17] VITALS: BP 113/76
--- NOTE | 2019-01-01 18:23 | UC ---
Throat Pain/Nasal Trey HPI - HPI Summary HPI Summary: right elbow has been painful for a couple of weeks sinus congestion and pain for a couple of days - History of Current Complaint Chief Complaint: UCRespiratory Stated Complaint: HEADACHE, SORE THROAT, AND ELBOW PAIN Time Seen by Provider: 01/01/19 18:01 Hx Obtained From: Patient Hx Last Menstrual Period: 12/28/18 ?: No Onset/Duration: Still Present Pain Intensity: 5 Pain Scale Used: 0-10 Numeric Cough: None Associated Signs & Symptoms: Positive: Sinus Discomfort, Nasal Discharge Related History: Seasonal Allergies, Smoking - Allergies/Home Medications Allergies/Adverse Reactions: Allergies Allergy/AdvReac Type Severity Reaction Status Date / Time fluticasone Allergy Intermediate Shortness Verified 01/01/19 18:13 [From Advair Diskus] of Breath salmeterol Allergy Intermediate Shortness Verified 01/01/19 18:13 [From Advair Diskus] of Breath aspirin Allergy Nausea Verified 01/01/19 18:13 erythromycin base Allergy Itching Verified 01/01/19 18:13 latex Allergy Rash Verified 01/01/19 18:13 metronidazole [From Flagyl] Allergy Rash And Verified 01/01/19 18:13 Itching sulfamethoxazole Allergy Itching Verified 01/01/19 18:13 [From Bactrim] trimethoprim [From Bactrim] Allergy Itching Verified 01/01/19 18:13 Home Medications: Home Medications Ibuprofen TAB* [Advil TAB*] 200 mg PO Q6H PRN 01/01/19 [History Confirmed ] PMH/Surg Hx/FS Hx/Imm Hx Previously Healthy: No Respiratory History: Asthma GI/ History: Gastroesophageal Reflux - Surgical History Surgical History: Yes Surgery Procedure, Year, and Place: CERVICAL TEAR REPAIR, TONSILLECTOMY, TUBAL LIGATION, APPENDECTOMY, SINUS SURGERY; left knee arthroscopy 07/2015 [place] - Family History Known Family History: Positive: Respiratory Disease, Other - Cancer Negative: Cardiac Disease Family History: Noncontributory and reviewed - Social History Occupation: Employed Part-time Lives: With Family Alcohol Use: Occasionally Substance Use Type: None Smoking Status (MU): Never Smoked Tobacco Household Exposure Type: Cigars Review of Systems All Other Systems Reviewed And Are Negative: Yes Constitutional: Positive: Negative Skin: Positive: Negative Eyes: Positive: Negative ENT: Positive: Sore Throat, Sinus Congestion Respiratory: Positive: Negative Cardiovascular: Positive: Negative Gastrointestinal: Positive: Negative Genitourinary: Positive: Negative Motor: Positive: Negative Neurovascular: Positive: Negative Musculoskeletal: Positive: Arthralgia - right elbow Neurological: Positive: Headache Psychological: Positive: Negative Is Patient Immunocompromised?: No Physical Exam Triage Information Reviewed: Yes Appearance: Well-Appearing, No Pain Distress, Well-Nourished Vital Signs: Initial Vital Signs Temp 97.9 F 01/01/19 18:07 Pulse 65 01/01/19 18:07 Resp 16 01/01/19 18:07 BP 113/76 01/01/19 18:07 Pulse Ox 97 01/01/19 18:07 Vital Signs Reviewed: Yes Eye Exam: Normal Eyes: Positive: Conjunctiva Clear ENT Exam: Normal ENT: Positive: Normal ENT inspection, Hearing grossly normal, Pharynx normal, Nasal congestion, TMs normal, Sinus tenderness, Uvula midline. Negative: Tonsillar swelling, Tonsillar exudate, Trismus, Muffled voice, Hoarse voice, Dental tenderness Dental Exam: Normal Neck exam: Normal Neck: Positive: Supple, Nontender, No Lymphadenopathy Respiratory Exam: Normal Respiratory: Positive: Chest non-tender, Lungs clear, Normal breath sounds, No respiratory distress, No accessory muscle use Cardiovascular Exam: Normal Cardiovascular: Positive: RRR, No Murmur, Pulses Normal, Brisk Capillary Refill Musculoskeletal Exam: Normal Musculoskeletal: Positive: Strength Intact, ROM Intact, No Edema Neurological Exam: Normal Neurological: Positive: Alert, Muscle Tone Normal Psychological Exam: Normal Skin Exam: Normal Diagnostics - Laboratory Lab Results: rst (-) Throat Pain/Nasal Course/Dx - Course Course Of Treatment: ok to start antibiotics if symptoms continue for 7 days, get pressure band for forearm rest ice and ibuprofen follow with pcp prn - Differential Dx/Diagnosis Provider Diagnosis: Tendonitis of elbow, right, Rhinosinusitis Discharge - Sign-Out/Discharge Documenting (check all that apply): Patient Departure All imaging exams completed and their final reports reviewed: No Studies - Discharge Plan Condition: Stable Disposition: HOME Prescriptions: Amoxicillin/Clavulanate TAB* [Augmentin TAB 875*] 875 mg PO BID #20 tab Patient Education Materials: Ibuprofen (By mouth), Tennis Elbow (ED), Sinusitis (ED) Forms: *Work Release Referrals: Nnamdi Sotelo MD [Primary Care Provider] - If Needed - Billing Disposition and Condition Condition: STABLE Disposition: Home - Attestation Statements Provider Attestation: Per institutional requirements, I have reviewed the chart, however, I was not consulted specifically or made aware of this patient by the midlevel provider. I did not personally evaluate, interact with , or disposition this patient.
== END 2019-01-01 18:30 | disposition home or self-care (01) ==
LOC: UCEAST 17:51
DX: M77.8 Other enthesopathies, not elsewhere classified (principal); J32.9 Chronic sinusitis, unspecified; K21.9 Gastro-esophageal reflux disease without esophagitis; J45.909 Unspecified asthma, uncomplicated; Z88.2 Allergy status to sulfonamides; Z91.040 Latex allergy status
CPT/HCPCS: 87651; 99212; G0463